=== PATIENT | male | born 1995 | race Caucasian/White ===

== ENCOUNTER 2016-11-02 16:40 | Emergency (ER) | payer OTHER ==
[2016-11-02 17:25] VITALS: BP 98/57
--- NOTE | 2016-11-02 17:35 | UC ---
Laceration HPI - HPI Summary HPI Summary: complaint of laceration on right great toe threw a garden shovel small into his great toe can bend toe without any difficulty bleed a lot then put a pressure bandage on it hasn't taken nay medication for pain - History Of Current Complaint Chief Complaint: UCLaceration Stated Complaint: TOE INJURY Time Seen by Provider: 11/02/16 17:27 Hx Obtained From: Patient - Allergies/Home Medications Allergies/Adverse Reactions: Allergies Allergy/AdvReac Type Severity Reaction Status Date / Time No Known Allergies Allergy Verified 11/02/16 17:25 Home Medications: Home Medications NK [No Home Medications Reported] 11/02/16 [History Confirmed 11/02/16] PMH/Surg Hx/FS Hx/Imm Hx Previously Healthy: Yes Respiratory History: Asthma - Surgical History Surgical History: Yes Surgery Procedure, Year, and Place: T&A;. RT ELBOW SCOPED FOR BONE CHIP;. RT KNEE MENISCUS REMOVAL; - Family History Known Family History: Positive: Diabetes - fatehr Negative: Cardiac Disease, Hypertension - Social History Occupation: Student Lives: With Family Alcohol Use: None Substance Use Type: None Smoking Status (MU): Never Smoked Tobacco - Immunization History Most Recent Tetanus Shot: STATES UP TO DATE Review of Systems Constitutional: Negative Skin: Other - laceration Eyes: Negative ENT: Negative Respiratory: Negative Cardiovascular: Negative Gastrointestinal: Negative Genitourinary: Negative Motor: Negative Neurovascular: Negative Musculoskeletal: Negative Neurological: Negative Psychological: Negative All Other Systems Reviewed And Are Negative: Yes Physical Exam Triage Information Reviewed: Yes Appearance: No Pain Distress, Well-Nourished Vital Signs: Initial Vital Signs Temp 97.7 F 11/02/16 17:21 Pulse 64 11/02/16 17:21 Resp 16 11/02/16 17:21 BP 98/57 11/02/16 17:21 Pulse Ox 99 11/02/16 17:21 Vital Signs Reviewed: Yes Eyes: Positive: Conjunctiva Clear ENT: Positive: Pharynx normal, TMs normal Neck: Positive: No Lymphadenopathy Respiratory: Positive: Lungs clear, Normal breath sounds, No respiratory distress, No accessory muscle use Cardiovascular: Positive: RRR, No Murmur, Pulses Normal Abdomen Description: Positive: Nontender, Soft Bowel Sounds: Positive: Present Musculoskeletal: Positive: No Edema Neurological: Positive: Alert Psychological Exam: Normal Skin: Positive: Other - right great toe- 4mm laceration beneath toenail Laceration Repair - Laceration Repair 1 Description: Linear Laceration Size After Repair: Length (cm) - 4mm, Width (mm) - 1mm, Depth (mm) - 2mm Modified For Repair: No Cleansing Completed Via Routine Prep: Yes Irrigation With Pressure Irrigation Device: Yes Closure Material: Skin Adhesive, SteriStrips Laceration Course/Dx - Differential Dx - Laceration/Wound Differental Diagnoses: Laceration Provider Diagnoses: laceration - simple Discharge - Discharge Plan Condition: Stable Disposition: HOME Patient Education Materials: Steristrips (ED), Skin Adhesive Care (ED) Referrals: [facility] [Outside] Additional Instructions: Increase fluids and rest Take acetaminophen or ibuprofen for fever or pain Please review your discharge instructions. If your symptoms do not improve please call your primary care provider or return to urgent care.
== END 2016-11-02 17:59 | disposition home or self-care (01) ==
LOC: UCEAST 16:40
DX: S91.111A Laceration without foreign body of right great toe without damage to nail, initial encounter (principal); W20.8XXA Other cause of strike by thrown, projected or falling object, initial encounter; Y93.9 Activity, unspecified; Y92.9 Unspecified place or not applicable; Y99.9 Unspecified external cause status
CPT/HCPCS: 12001; 99211; 99212; G0463